=== PATIENT | female | born 1940 | race Caucasian/White ===

== ENCOUNTER 2019-06-20 07:09 | Day surgery (SDC) | payer MEDICARE, BC ==
[2019-06-19 13:23] VITALS: BMI 25.7
[~2019-06-20 07:09] MED LIST: Fluorouracil 100 MG, Enoxaparin Sodium 25 MG, EPINEPHrine 0.3 MG in Ophthalmic Irrigati... IRR SCH
[2019-06-20] MEDS ORDERED: Phenylephrine 2.5% Ophth Soln 5 ML BOT ONE (08:29)
[2019-06-20] MEDS ORDERED: Cyclopentolate 1% Opth Drop 2 ML BOT ONE (08:29)
[2019-06-20] MEDS ORDERED: Ondansetron PF 4 MG/2 ML Vial ONE (09:02)
--- NOTE | 2019-06-20 11:03 | OP ---
DATE OF PROCEDURE: 06/20/2019 PREOPERATIVE DIAGNOSIS: Rhegmatogenous retinal detachment, right eye. POSTOPERATIVE DIAGNOSIS: Rhegmatogenous retinal detachment, right eye. PROCEDURES PERFORMED: Pars plana vitrectomy and retinal detachment repair, right eye. ANESTHESIA: Local with monitored anesthesia care. PROCEDURE IN DETAIL: The patient was identified in the preoperative holding area. Appropriate informed consent for the planned surgical procedure on the right eye had been obtained. The patient was transported to the operative suite, where appropriate cardiopulmonary monitoring was established. Local anesthesia was obtained using retrobulbar modified [place] Lint lid block using 50:50 mixture of 4% lidocaine with 0.75% bupivacaine. The patient was prepped and draped in the usual sterile manner for ophthalmic surgery on the right eye. Lid speculum was placed in the right eye. A 25-gauge trocar was placed in conjunctivae and sclerae superotemporally, inferotemporally, and supranasally. Infusion line was placed inferotemporally. Light pipe vitreous cutter was inserted into the eye. Core vitrectomy was performed. Retinal detachment was noted temporally. A tear was noted at the 10 o'clock position. Vitreous base was trimmed back 360 degrees using wide-field viewing system. Posterior drained retinotomy was created and placed along the 10 o'clock meridian. Complete air-fluid exchange was performed with 10 minutes being left for fluid to drain posteriorly. 360 laser was placed using Endolaser delivery device. 28% sulfur hexafluoride gas was infused into the eye. Trocars were removed. Eye was noted to retain pressure well. Retrobulbar Kenalog and subconjunctival Ancef were placed. Antibiotic ointment was placed. Eye was patched and shielded. The patient was taken to postoperative recovery unit in good condition, having suffered no immediate perioperative complications. The patient was instructed to keep patch and shield on, and position right or the left side down. Followup appointment with Dr. Plaza. Job ID: [id number]
== END 2019-06-20 11:24 | disposition home or self-care (01) ==
LOC: SDC 07:09
PROVIDERS: ATTEND Ophthalmology Retina Specialist
PROC: 08T43ZZ Resection of Right Vitreous, Percutaneous Approach (ICD-10-PCS; principal; 2019-06-20)
PROC: 08QE3ZZ Repair Right Retina, Percutaneous Approach (ICD-10-PCS; 2019-06-20)
DX: H33.011 Retinal detachment with single break, right eye (principal); Z79.82 Long term (current) use of aspirin; Z79.899 Other long term (current) drug therapy
CPT/HCPCS: 67025; J0171; J1650; J2405; J9190

== ENCOUNTER 2019-10-22 09:05 | Outpatient (CLI) | payer MEDICARE, BC ==
--- NOTE | 2019-10-22 11:07 | ULT ---
US Abdominal: 10/22/2019 12:00 AM CLINICAL HISTORY: Nausea. STUDY: Complete abdominal ultrasound COMPARISON: None. FINDINGS: Liver: Size: Normal. Echogenicity: Normal. Contour: Smooth. Mass: None. Common bile duct: 5 mm Gallbladder: Normal. Pancreas: Head, body, and tail appear normal. Inferior vena cava: Normal in caliber Aorta: Normal in caliber Spleen: No focal lesions. Spleen measuring 9.1 cm in length. Right kidney: No pelvicalyceal dilatation. Right kidney measuring 9.9 cm in length. 1.8 cm cyst Left kidney: No pelvicalyceal dilatation. Left kidney measuring 9.8 cm in length. IMPRESSION: Right renal cyst
--- NOTE | 2019-10-22 14:38 | RAD ---
DOUBLE CONTRAST UPPER GI: INDICATION: History of persistent nausea and difficulty swallowing. TECHNIQUE: Thin barium, thick barium and effervescent crystals were utilized for a double contrast upper GI eval uation. Total fluoroscopic time was 3.6 minutes. Total exposure was 19.997 Gy/cm2. FINDINGS: There is limited double contrast evaluation of the esophagus due to poor distention. No definite esop hageal mucosal abnormality is evident. There are numerous tertiary contractions seen involving the distal esophagus. No intraluminal mass or stricture was seen. The 12.5 mg barium tablet had transient holdup at the level of gastroesophageal junction. There is a small hiatal hernia. There was moderate gastroesophageal reflux demonstrated to the examination up to the mid thoracic spinal level. The visualized stomach and small bowel is normal appearing. IMPRESSION: 1. Small hiatal hernia. 2. Moderate gastroesophageal reflux. 3. Tertiary contractions of the esophagus can be seen with presbyesophagus or esophagitis. Transcribed Date/Time: 10/22/2019 2:43 PM
== END 2019-10-22 09:06 | disposition home or self-care (01) ==
LOC: ULT 09:05
PROVIDERS: ATTEND Internal Medicine
DX: R11.0 Nausea (principal); K21.9 Gastro-esophageal reflux disease without esophagitis; K44.9 Diaphragmatic hernia without obstruction or gangrene; N28.1 Cyst of kidney, acquired
CPT/HCPCS: 74247; 93975